=== PATIENT | male | born 1955 | race Hispanic/Latino ===

== ENCOUNTER 2018-03-06 16:00 | Inpatient (IN) | payer BC, OTHER ==
[~2018-03-06] VITALS: Ht 167.6 cm; Wt 83.0 kg
[~2018-03-06 16:00] MED LIST: HUM10VIA6 SQ; LISI-617 PO; METF10004 PO; PANT20TA PO; PRAV20TA4 PO
[2018-03-31 16:03] LABS: BASOPHILS % (AUTO) 0.3 % (0.0-5.0); EOSINOPHILS % (AUTO) 1.6 % (0.0-8.0); HEMATOCRIT 38.5 % (42-54); LYMPHOCYTES % (AUTO) 22.2 % (21.0-51.0); MEAN CORPUSCULAR HGB CONC 34.4 g/dL (32.0-36.0); MEAN CORPUSCULAR VOLUME 84.2 fL (79-99); MONOCYTES % (AUTO) 5.4 % (3.0-13.0); NEUTROPHILS % (AUTO) 70.5 % (40.0-77.0); PLATELET COUNT (AUTO) 209 K/uL (130-400); RED BLOOD CELL COUNT(AUTO) 4.58 MIL/uL (4.50-6.20); RED CELL DISTRIBUTION WIDTH 13.9 % (11.0-15.5); WHITE BLOOD COUNT (AUTO) 7.5 K/uL (4.8-10.8)
[2018-03-31 16:04] VITALS: BP 145/75
[2018-03-31 16:09] LABS: APPEARANCE,URINE Clear (CLEAR); BILIRUBIN,URINE Negative (NEGATIVE); COLOR,URINE Dark Yellow (YELLOW); GLUCOSE, URINE (UA) 250 mg/dL (NEGATIVE); KETONES,URINE Trace mg/dL (NEGATIVE); LEUKOCYTE ESTERASE ,URINE Negative (NEGATIVE); NITRATE,URINE Negative (NEGATIVE); OCCULT BLOOD,URINE Negative (NEGATIVE); PROTEIN,URINE 300 (NEGATIVE)
[2018-03-31 16:12] LABS: CREATININE 1.1 mg/dL (0.5-1.5); POTASSIUM 4.3 mmol/L (3.5-5.1)
[2018-03-31 16:16] LABS: INR 1.02 (0.85-1.15); PARTIAL THROMBOPLASTIN TIME 25.6 SEC (26.3-35.5); PROTHROMBIN TIME 10.7 SEC (9.6-11.6)
[2018-03-31 16:30] LABS: BACTERIA,URINE Rare /HPF (None Seen); MUCUS,URINE Few LPF (None Seen); RBC,URINE 0-1 /HPF (0-1); SPERM,URINE Rare /HPF (None Seen); SQUAMOUS EPITHELIAL CELL,UR Few /HPF (0-2); WBC,URINE 0-1 /HPF (0-1)
[2018-03-31] MEDS ORDERED: GABA-531 PO (16:35)
[2018-03-31] MEDS ORDERED: FERS325 PO (17:10)
[2018-03-31] MEDS ORDERED: PIOG30TA70 PO (17:10)
[2018-03-31] MEDS: CEFAZOLIN SODIUM 1 GM VIAL IVP SCH (17:15)
[2018-04-01] VITALS (19 sets, daily range): BP systolic 124–157; BP diastolic 58–80
[2018-04-01] MEDS ORDERED: CEFAZOLIN SODIUM 1 GM VIAL ONE ×2 (09:17→11:21)
[2018-04-01] MEDS ORDERED: SODIUM CHLORIDE 0.9% 1000ML 1,000 ML IV ONE (09:17)
[2018-04-01] MEDS ORDERED: HYDR12.530 PO (09:41)
[2018-04-01] MEDS ORDERED: OMEP10SU2 PO (09:41)
[2018-04-01] MEDS ORDERED: FENTANYL CITRATE PF 50 MCG/1 ML 5ML AMP IV ONE (10:20)
[2018-04-01] MEDS ORDERED: MIDAZOLAM HCL 1 MG/ML 2ML VIAL ONE (10:20)
[2018-04-01] MEDS ORDERED: METOCLOPRAMIDE 10 MG/2 ML VIAL ONE (10:54)
[2018-04-01] MEDS ORDERED: ACETAMINOPHEN EXTRA STRENGTH 500 MG TABLET ONE (10:54)
[2018-04-01] MEDS ORDERED: KETOROLAC TROMETHAMINE 15MG/ML ONE (10:54)
[2018-04-01] MEDS ORDERED: OXYCODONE HCL 10 MG TAB.SR.12H PO ONE (10:55)
[2018-04-01] MEDS ORDERED: CELECOXIB 200 MG CAP ONE (10:55)
[2018-04-01] MEDS ORDERED: TRANEXAMIC ACID 1000MG/10ML IV ONE (11:21)
[2018-04-01] MEDS ORDERED: BUPIVACAINE/PF 0.25% 30ML VIAL IJ ONE (11:21)
[2018-04-01] MEDS ORDERED: EPINEPHRINE 1 MG/ML AMPULE ONE (11:23)
[2018-04-01] MEDS: CEFAZOLIN SODIUM 1 GM VIAL IVP SCH ×2 (12:30→20:03)
[2018-04-01] MEDS ORDERED: TRAMADOL HCL 50 MG TABLET PO PRN (14:15)
[2018-04-01] MEDS ORDERED: KETOROLAC TROMETHAMINE 15MG/ML IV PRN (14:15)
[2018-04-01] MEDS ORDERED: CALCIUM CARBONATE 500 MG TABLET PO PRN (14:15)
[2018-04-01] MEDS: ACETAMINOPHEN EXTRA STRENGTH 500 MG TABLET PO SCH ×2 (14:15→22:15)
[2018-04-01] MEDS ORDERED: POTASSIUM CHLORIDE 10% ELIXIR 20 MEQ/15 ML UDCUP PO PRN (14:15)
[2018-04-01] MEDS ORDERED: LIDOCAINE HCL-MPF 1% 2ML VIAL IVP PRN (14:15)
[2018-04-01] MEDS ORDERED: FERROUS FUMARATE 324 MG TABLET PO PRN (14:15)
[2018-04-01] MEDS ORDERED: POTASSIUM CHLORIDE 20MEQ/100ML 100 ML IV PRN (14:15)
[2018-04-01] MEDS ORDERED: OXYCODONE HCL 5 MG TAB PO PRN (14:15)
[2018-04-01] MEDS ORDERED: DiphenhydrAMINE HCL 50 MG/ML VIAL IVP PRN (14:15)
[2018-04-01] MEDS ORDERED: ONDANSETRON HCL 4 MG/2 ML VIAL IVP PRN (14:15)
[2018-04-01] MEDS ORDERED: POTASSIUM CHLORIDE 20 MEQ ERTAB PO PRN (14:15)
[2018-04-01] MEDS ORDERED: TEMAZEPAM 15 MG CAPSULE PO PRN (14:15)
[2018-04-01] MEDS ORDERED: MEPERIDINE-PF 25 MG/ML SYG ONE ×2 (14:51→15:10)
[2018-04-01] MEDS: SODIUM CHLORIDE 0.9% 1000ML 1,000 ML IV SCH ×2 (16:10→23:19)
[2018-04-01] MEDS: INSULIN HUMULIN R 100 UNIT/ML 3ML SQ SCH ×2 (16:34→21:00)
[2018-04-01] MEDS: METFORMIN HCL 500 MG TABLET PO SCH (17:58)
[2018-04-01] MEDS ORDERED: CEFAZOLIN 2GM / 50 ML 50 ML IV SCH (19:15)
[2018-04-01] MEDS: CELECOXIB 200 MG CAP PO SCH (20:03)
[2018-04-01] MEDS: FAMOTIDINE 20MG TAB 20 MG TAB PO SCH (20:03)
[2018-04-01] MEDS: ASPIRIN 325 MG TABLET PO SCH (20:03)
[2018-04-01] MEDS: GABAPENTIN 300 MG CAPSULE PO SCH (20:03)
[2018-04-01] MEDS: ATORVASTATIN CALCIUM 10 MG TABLET PO SCH (20:03)
[2018-04-01] MEDS: INSULIN HUMULIN 70/30 100 UNIT/ML 3ML SQ SCH (21:00)
[2018-04-01] MEDS: OXYCODONE HCL 5 MG TAB PO PRN (23:14)
[2018-04-02] VITALS (7 sets, daily range): BP systolic 124–154; BP diastolic 62–84
[2018-04-02] MEDS: CEFAZOLIN SODIUM 1 GM VIAL IVP SCH (03:56)
[2018-04-02 05:13] LABS: HEMATOCRIT 28.1 % (42-54); MEAN CORPUSCULAR HEMOGLOBIN 30.2 pg (27.0-33.0); MEAN CORPUSCULAR HGB CONC 35.9 g/dL (32.0-36.0); MEAN CORPUSCULAR VOLUME 84.2 fL (79-99); NUCLEATED RED BLOOD CELLS 0.1 % (0.0-0.19); PLATELET COUNT (AUTO) 134 K/uL (130-400); RED BLOOD CELL COUNT(AUTO) 3.34 MIL/uL (4.50-6.20); RED CELL DISTRIBUTION WIDTH 13.9 % (11.0-15.5); WHITE BLOOD COUNT (AUTO) 6.3 K/uL (4.8-10.8)
[2018-04-02 05:17] LABS: POTASSIUM 4.1 mmol/L (3.5-5.1)
[2018-04-02] MEDS: ACETAMINOPHEN EXTRA STRENGTH 500 MG TABLET PO SCH ×3 (05:59→22:34)
[2018-04-02] MEDS: INSULIN HUMULIN R 100 UNIT/ML 3ML SQ SCH ×4 (06:01→20:22)
[2018-04-02] MEDS: POLYETHYLENE GLYCOL 3350 17 GM POWD.PACK PO SCH (08:03)
[2018-04-02] MEDS: FERROUS SULFATE 325 MG TABLET.DR PO SCH (08:04)
[2018-04-02] MEDS: PIOGLITAZONE HCL 30 MG TAB PO SCH (08:04)
[2018-04-02] MEDS: LISINOPRIL 5 MG TABLET PO SCH (08:04)
[2018-04-02] MEDS: HYDROCHLOROTHIAZIDE 25 MG TABLET PO SCH (08:04)
[2018-04-02] MEDS: ASPIRIN 325 MG TABLET PO SCH ×2 (08:04→20:16)
[2018-04-02] MEDS: FAMOTIDINE 20MG TAB 20 MG TAB PO SCH ×2 (08:05→20:16)
[2018-04-02] MEDS: PANTOPRAZOLE SODIUM 40 MG TABLET.DR PO SCH (08:05)
[2018-04-02] MEDS: OXYCODONE HCL 5 MG TAB PO PRN (08:05)
[2018-04-02] MEDS: TAMSULOSIN HCL 0.4 MG CAP.ER.24H PO SCH (08:05)
[2018-04-02] MEDS: CELECOXIB 200 MG CAP PO SCH ×2 (08:05→20:16)
[2018-04-02] MEDS: GABAPENTIN 300 MG CAPSULE PO SCH ×3 (08:10→20:16)
[2018-04-02] MEDS: INSULIN HUMULIN 70/30 100 UNIT/ML 3ML SQ SCH ×3 (09:00→20:22)
[2018-04-02] MEDS: SODIUM CHLORIDE 0.9% 1000ML 1,000 ML IV SCH (10:10)
[2018-04-02] MEDS: METFORMIN HCL 500 MG TABLET PO SCH ×2 (12:19→16:55)
[2018-04-02] MEDS ORDERED: ACETAMINOPHEN-CODEINE 300/30MG TAB PO PRN ×2 (19:15)
[2018-04-02] MEDS ORDERED: KETOROLAC TROMETHAMINE 15MG/ML IV PRN (20:15)
[2018-04-02] MEDS: ATORVASTATIN CALCIUM 10 MG TABLET PO SCH (20:16)
[2018-04-03 04:00] VITALS: BP 120/60
[2018-04-03] MEDS: ACETAMINOPHEN EXTRA STRENGTH 500 MG TABLET PO SCH ×2 (06:07→14:20)
[2018-04-03] MEDS: INSULIN HUMULIN R 100 UNIT/ML 3ML SQ SCH ×3 (06:23→16:30)
[2018-04-03 07:23] VITALS: BP 147/69
[2018-04-03] MEDS: TAMSULOSIN HCL 0.4 MG CAP.ER.24H PO SCH (08:09)
[2018-04-03] MEDS: FERROUS SULFATE 325 MG TABLET.DR PO SCH (08:10)
[2018-04-03] MEDS: HYDROCHLOROTHIAZIDE 25 MG TABLET PO SCH (08:10)
[2018-04-03] MEDS: CELECOXIB 200 MG CAP PO SCH (08:10)
[2018-04-03] MEDS: PIOGLITAZONE HCL 30 MG TAB PO SCH (08:10)
[2018-04-03] MEDS: FAMOTIDINE 20MG TAB 20 MG TAB PO SCH (08:10)
[2018-04-03] MEDS: LISINOPRIL 5 MG TABLET PO SCH (08:10)
[2018-04-03] MEDS: POLYETHYLENE GLYCOL 3350 17 GM POWD.PACK PO SCH (08:10)
[2018-04-03] MEDS: PANTOPRAZOLE SODIUM 40 MG TABLET.DR PO SCH (08:10)
[2018-04-03] MEDS: ASPIRIN 325 MG TABLET PO SCH (08:10)
[2018-04-03] MEDS: GABAPENTIN 300 MG CAPSULE PO SCH ×2 (08:16→14:19)
[2018-04-03] MEDS: INSULIN HUMULIN 70/30 100 UNIT/ML 3ML SQ SCH ×2 (09:00→14:00)
[2018-04-03 11:29] VITALS: BP 125/60
[2018-04-03] MEDS: METFORMIN HCL 500 MG TABLET PO SCH ×2 (11:46→16:59)
[2018-04-03] MEDS ORDERED: HYDR-309 PO (14:07)
[2018-04-03] MEDS ORDERED: ASPI-1012 PO (14:07)
[2018-04-03 16:48] VITALS: BP 112/60
[2018-04-04] MEDS ORDERED: BISACODYL 10 MG SUPP.RECT RC PRN (14:15)
== END 2018-04-03 20:03 | DRG 470 ==
LOC: EDSTATUS 03-18 13:15 → DAHIP 04-01 08:16 → 4AH 04-01 14:34
PROVIDERS: ADMIT Orthopaedic Surgery; ATTEND Orthopaedic Surgery
PROC: 0SRD0J9 Replacement of Left Knee Joint with Synthetic Substitute, Cemented, Open Approach (ICD-10-PCS; principal; 2018-04-01 12:02)
DX: M17.12 Unilateral primary osteoarthritis, left knee (principal); Z96.652 Presence of left artificial knee joint; E11.9 Type 2 diabetes mellitus without complications; H26.9 Unspecified cataract; Z90.49 Acquired absence of other specified parts of digestive tract; G89.29 Other chronic pain; I10 Essential (primary) hypertension; E66.9 Obesity, unspecified; Z68.29 Body mass index [BMI] 29.0-29.9, adult
CPT/HCPCS: 36415; 80048; 81001; 82948; 85025; 85027; 85610; 85730; 88305; 88311; 96374; 96375; 97039; A4218; J0171; J0690; J1815; J1885; J2175; J2250; J2765; J3010; J3490; J7030

== ENCOUNTER 2019-09-25 18:00 | Emergency (ER) | payer BC, OTHER ==
[~2019-09-25 18:00] MED LIST changes: +ASPI-1012 PO; +CYAN500T63 PO; +FERS325 PO; +HYDR-4457 PO; +HYDR25TA PO; -LISI-617 PO; +LISI10TA7 PO; +METF-444 PO; -METF10004 PO; +OMEP10SU2 PO; -PANT20TA PO; -PRAV20TA4 PO; +PRAV40TA3 PO
[2019-09-25] MEDS ORDERED: ACETAMINOPHEN 325 MG TAB ONE (18:17)
== END 2019-09-25 18:52 | disposition home or self-care (01) ==
LOC: EDH 18:00
DX: S83.8X2A Sprain of other specified parts of left knee, initial encounter (principal); I10 Essential (primary) hypertension; E11.9 Type 2 diabetes mellitus without complications; Z98.890 Other specified postprocedural states; X50.1XXA Overexertion from prolonged static or awkward postures, initial encounter; Y92.89 Other specified places as the place of occurrence of the external cause; Y93.89 Activity, other specified; Y99.0 Civilian activity done for income or pay
CPT/HCPCS: 73562